=== PATIENT | female | born 1965 | race Caucasian/White ===

== ENCOUNTER 2018-10-14 08:42 | Inpatient (IN) | payer OTHER ==
[~2018-10-14] VITALS: Ht 160 cm; Wt 45.9 kg
[2018-10-14] VITALS (8 sets, daily range): BP systolic 90–139; BP diastolic 48–100
[~2018-10-14 08:42] MED LIST: ACIDOPHILUS1 EAC3 PO; ACIDOPHILUS100 MG PO; ADULT LOW DOSE81 MG PO; BACLOFEN20 MG PO; BENADRYL ALLERG25 MG PO; BENADRYL25 MG PO; BUSPIRONE HCL7.5 MG PO; CLEOCIN HCL300 MG PO; CLONAZEPAM 1 MG1 M1 PO; COLACE100 MG PO; FAMOTIDINE20 MG PO; FENTANYL PA25 MCG/HR TP; FLEXERIL PO; HYDROCODON-ACE1 EAC4 PO; HYDROCODON-ACE1 EAC5 PO; HYDROCODON-ACE1 EAC8 PO; IBUPROFEN 600600 M1 PO; KAPVAY0.1 MG PO; MARINOL5 MG PO; MORPHINE SULFAT15 M3 PO; MORPHINE TOP; MS CONTIN 30 MG30 M1 PO; MS CONTIN30 MG PO; NEURONTIN 400400 M1 PO; NEURONTIN 400M400 M2 PO; NORCO 10-325 T1 EACH PO; OXYCONTIN30 MG PO; PREDNISONE 5 MG5 M1 PO; PROVENTIL; SSD TOP; TIZANIDINE HCL4 M1 PO; TIZANIDINE HCL4 MG PO; TRILEPTAL150 MG PO; [UNRECOGNIZED DRUG - CODE] TOP
[2018-10-14 09:14] LABS: HCO3 20.1 mmol/L (22.0-26.0); PCO2 37.6 mmHg (35.0-45.0); PO2 67.6 mmHg (80.0-100.0); pH 7.345 (7.360-7.450); sO2 92.7 % (92.0-98.0)
[2018-10-14 09:36] LABS: URINE BLOOD TRACE (Negative); URINE CLARITY CLOUDY; URINE COLOR BROWN; URINE GLUCOSE-RANDOM* TRACE (Negative); URINE KETONES TRACE (Negative); URINE LEUKOCYTES-REFLEX TRACE (Negative); URINE PROTEIN (DIPSTICK) 1+ (Negative); URINE SPECIFIC GRAVITY 1.025 (1.005-1.035)
[2018-10-14 09:37] LABS: HEMOGLOBIN 14.5 gm/dL (12.0-15.0); MCH 30.1 pg (26.0-34.0); MCHC 33.8 g/dL (28.0-37.0); MCV 89.2 fL (80.0-100.0); RBC 4.82 mil/uL (4.20-5.00); RDW 12.6 % (10.5-14.5); WBC 13.1 thou/uL (4.0-11.0)
[2018-10-14 09:40] LABS: ICTOTEST (BILI CONFIRMATORY) Negative (Negative); URINE BILIRUBIN NEGATIVE (Negative); URINE NITRITE-REFLEX POSITIVE (Negative)
[2018-10-14 09:50] LABS: AMORPHOUS URATES Many /LPF (None Seen); BACTERIA-REFLEX >30 Many /HPF (None Seen); CASTS None Seen /LPF (None Seen); SQUAMOUS None Seen /LPF (0-3); URINE RBC 3-10 Few /HPF (0-2); URINE WBC-REFLEX 0-5 Rare /HPF (0-5)
[2018-10-14 09:55] LABS: ANION GAP 12 mmol/L (7-16); BUN 14 mg/dL (7-18); CALCIUM 9.6 mg/dL (8.5-10.1); CHLORIDE 96 mmol/L (98-107); CO2 24 mmol/L (21-32); CREATININE 0.7 mg/dL (0.6-1.0); GLUCOSE 163 mg/dL (74-106); SODIUM 132 mmol/L (136-145); TROPONIN-I <0.06 ng/mL (<0.06)
[2018-10-14 09:56] LABS: POTASSIUM 2.9 mmol/L (3.5-5.1)
[2018-10-14] MEDS ORDERED: NORCO 10-325 T1 EACH PO (11:47)
[2018-10-14] MEDS ORDERED: MS CONTIN 30 MG30 MG PO (11:47)
[2018-10-14] MEDS ORDERED: BACLOFEN 10MG T10 MG PO (11:48)
[2018-10-14] MEDS ORDERED: OXCARBAZEPINE150 MG PO (11:48)
[2018-10-14] MEDS ORDERED: COLACE100 MG PO (11:49)
[2018-10-14] MEDS ORDERED: CLONIDINE0.1 PO (11:49)
[2018-10-14] MEDS ORDERED: IBUPROFEN 600600 M1 PO (11:49)
[2018-10-14] MEDS ORDERED: PEPCID20 MG PO (11:50)
[2018-10-14] MEDS ORDERED: SSD CREAM 1% 5050 GM TOP (11:50)
[2018-10-14] MEDS ORDERED: NEURONTIN 400400 M1 PO (11:51)
[2018-10-14] MEDS ORDERED: ACIDOPHILUS1 EAC4 PO ×2 (12:07)
--- NOTE | 2018-10-14 13:46 | EKG ---
[address] [address] ELECTROCARDIOGRAM REPORT Name: RAMIREZ DE GUZMAN Room #: 357-P ADM IN M.R.#: [id number] Admission: 10/14/18 Attend Phys: Iggy Mclain MD Discharge: Date of : 69 Report #: [id number] THIS REPORT FOR: //name// [facility] ED Test Date: 2018-10-14 Test Time: 10:15:37 Pat Name: RAMIREZ DE GUZMAN Department: Room: 357 Gender: F Photo Mask Cleaner: Mannie GODWIN : 1965 Requested By: Leonides Lara Order Number: [id number] MD: Delmer Veliz Measurements Intervals Rosie Rate: 104 P: 61 AK: 161 QRS: 34 QRSD: 108 T: 50 QT: 382 QTc: 503 Interpretive Statements Sinus tachycardia Nonspecific ST segment abnormalities Compared to ECG 04/26/2008 14:46:14 No significant changes Electronically Signed On 10-14-2018 13:45:51 CDT by Delmer Veliz [email or web address] <ELECTRONICALLY SIGNED> By: Delmer Veliz MD 10/14/18 1345 [id number] MD ROSA Frost
[2018-10-14 15:10] LABS: CALCIUM 8.4 mg/dL (8.5-10.1); CREATININE 0.4 mg/dL (0.6-1.0); MAGNESIUM 1.8 mg/dL (1.8-2.4); POTASSIUM 3.1 mmol/L (3.5-5.1)
[2018-10-14 15:59] LABS: BE(vivo) -4.5 mmol/L (-2 to +3); HCO3 20.5 mmol/L (22.0-26.0); PCO2 37.3 mmHg (35.0-45.0); pH 7.357 (7.360-7.450); sO2 86.5 % (92.0-98.0)
[2018-10-14 16:00] LABS: PO2 53.3 mmHg (80.0-100.0)
--- NOTE | 2018-10-14 18:23 | NUR ---
NEW pt come from ER for unresponsing, pt 's eyes are closed, she is only reponsing to pain , pt is on o2 3l/min/nc, pt's VS, BS and o2sat are stable at this time, pt has started IV flud, IV ABT and KCL replacement as order, pt's PINEDA has insert for I&O, PT's family stay at pt's bedside, RN will report to next shift to keep eye on pt.
[2018-10-15 04:21] VITALS: BP 166/104
--- NOTE | 2018-10-15 04:37 | NUR ---
Assumed care of patient around 2300. Patient will track with her eyes when her name is called, but does not verbally respond to most questions. Only able to respond to pain questions with "yes." Unable to vocalize anything else. [employer]ER contacted re: resuming home medication list. Patient able to sleep most of shift. Family at bedside. Will continue to monitor.
[2018-10-15 05:34] LABS: HEMATOCRIT 34.6 % (37.0-47.0); MCH 30.3 pg (26.0-34.0); MCHC 34.8 g/dL (28.0-37.0); MCV 87.1 fL (80.0-100.0); RBC 3.97 mil/uL (4.20-5.00); RDW 12.6 % (10.5-14.5); WBC 7.8 thou/uL (4.0-11.0)
[2018-10-15 05:42] LABS: CALCIUM 8.2 mg/dL (8.5-10.1); CREATININE 0.3 mg/dL (0.6-1.0)
[2018-10-15 07:20] VITALS: BP 165/107
[2018-10-15 10:20] VITALS: BP 151/102
[2018-10-15 11:05] VITALS: BP 139/97
[2018-10-15 15:05] VITALS: BP 155/110
[2018-10-15 15:20] LABS: CALCIUM 8.7 mg/dL (8.5-10.1); CREATININE 0.3 mg/dL (0.6-1.0); MAGNESIUM 1.7 mg/dL (1.8-2.4); POTASSIUM 3.4 mmol/L (3.5-5.1)
--- NOTE | 2018-10-15 18:36 | NUR ---
pt is A&OX2 ( person and place) and pt can follow some commands, pt is continuing IV fluid and IV abt, and low potassium replacement as order, pt's potassium is 3.4 at 1500pm, RN has called dr to report pt's abnormal lab results, and high BP , new order received, DR Rey asks to recheck K and Mag LAB in 10/16/18 am, pt deoes not have SOB and N/V today. pt has slowly meeting care plan goals.
[2018-10-15 19:49] VITALS: BP 148/101
[2018-10-16 05:16] LABS: HEMATOCRIT 35.2 % (37.0-47.0); HEMOGLOBIN 11.9 gm/dL (12.0-15.0); MCH 29.9 pg (26.0-34.0); MCHC 33.9 g/dL (28.0-37.0); MCV 88.2 fL (80.0-100.0); RBC 3.99 mil/uL (4.20-5.00); RDW 12.6 % (10.5-14.5); WBC 6.3 thou/uL (4.0-11.0)
[2018-10-16 05:29] LABS: CALCIUM 8.6 mg/dL (8.5-10.1); CREATININE 0.3 mg/dL (0.6-1.0); MAGNESIUM 1.9 mg/dL (1.8-2.4); POTASSIUM 3.2 mmol/L (3.5-5.1)
[2018-10-16 05:42] VITALS: BP 180/107
--- NOTE | 2018-10-16 06:38 | NUR ---
PT LYING IN BED. TURNING AT LEAST EVERY TWO HOURS. LORTAB AND IBUPROFEN PROVIDING PARTIAL PAIN RELIEF. FAMILY AT BEDSIDE. RESTING COMFORTABLY. NO NEEDS VOICED. CALL LIGHT WITHIN REACH. WILL CONTINUE TO PROVIDE FREQUENT OBSERVATION.
[2018-10-16 07:15] VITALS: BP 181/111
[2018-10-16 10:09] VITALS: BP 149/83
[2018-10-16 13:40] VITALS: BP 172/99
--- NOTE | 2018-10-16 14:25 | NUR ---
pt's assessment has done, pt is A&OX3, pt starts eating and drinking, pt is continuing IV fluid and iv ABT, PT has finished IV kcl 40meq / 200ml ( 20 meq/100ml / bag) infusion at 50ml/hr, pt will have Lab BMP at 1500 as order, pt is continuing pain managemnet , pt needs help change position and ADL, pt had PRN hydralazine 10mg iv for BP 172/99MMHG at 1400pm, pt is on o2 3l/min/nc, pt denies pain and sob at this time,pt's family stay at pt's bedside .pt has slowly meeting care plan goals.
--- NOTE | 2018-10-16 15:49 | NUR ---
pt has 40 meq kcl IV infusion over 4hr for potassium 3.2 today, RN has called Dr Mclain to report pt is diffical to draw blood to recheck potassium at 1500pm, pt's vs are stable at this time, new order received, cancel 1500pm Lab, order Lab at 10/17/18 am, pt refused COLON bed. we will change position q2hr.
[2018-10-16 15:50] VITALS: BP 153/96
[2018-10-16 20:10] VITALS: BP 170/90
[2018-10-17 00:08] VITALS: BP 146/84
[2018-10-17 05:42] LABS: HEMATOCRIT 28.6 % (37.0-47.0); MCHC 34.2 g/dL (28.0-37.0); MCV 87.7 fL (80.0-100.0); RBC 3.26 mil/uL (4.20-5.00); RDW 12.5 % (10.5-14.5); WBC 8.5 thou/uL (4.0-11.0)
[2018-10-17 05:45] LABS: HEMOGLOBIN 9.8 gm/dL (12.0-15.0)
[2018-10-17 05:58] LABS: CALCIUM 8.1 mg/dL (8.5-10.1); CREATININE 0.2 mg/dL (0.6-1.0)
[2018-10-17 06:03] LABS: POTASSIUM 2.6 mmol/L (3.5-5.1)
[2018-10-17 06:23] VITALS: BP 134/76
[2018-10-17 07:59] VITALS: BP 157/96
--- NOTE | 2018-10-17 08:43 | 2DMMODE ---
[facility] [place] [address] 2 D/M-MODE ECHOCARDIOGRAM Name: RAMIREZ DE GUZMAN Abdiel Room #: 357-P ADM IN .R.#: [id number] Admission: 10/14/18 Attend Phys: Iggy Mclain MD Discharge: Date of : 69 Date of Service: 10/17/18 0842 Report #: [id number] THIS REPORT FOR: //name// APPROVED REPORT Study performed: 10/17/2018 08:11:58 EXAM: Comprehensive 2D, Doppler, and color-flow Echocardiogram Patient Location: Bedside Room #: 357 Status: routine BSA: 1.45 HR: 100 bpm BP: 134/76 mmHg Rhythm: SINUS/TACHY/PVCs Other Information Study Quality: Adequate Indications Hypertension. Hx: MS 2D Dimensions IVSd: 13.78 (7-11mm) LVOT Diam: 21.37 (18-24mm) LVDd: 36.23 mm PWd: 9.39 (7-11mm) LVDs: 26.67 (25-40mm) Aortic Root: 33.73 mm Volumes Left Atrial Volume (Systole) Single Plane 4CH: 36.41 mL Single Plane 2CH: 16.31 mL LA ESV Index: 20.00 mL/m2 Aortic Valve AoV Peak Harman.: 1.51 m/s AO Peak Gr.: 9.12 mmHg LVOT Max P.17 mmHg LVOT Max V: 1.14 m/s DEYANIRA Vmax: 2.70 cm2 Mitral Valve E/A Ratio: 0.8 MV Decel. Time: 221.86 ms MV E Max Harman.: 0.80 m/s MV A Harman.: 0.95 m/s [facility] [place] [address] 2 D/M-MODE ECHOCARDIOGRAM Name: RAMIREZ DE GUZMAN Room #: 357-P [facility]#: [id number] Admission: 10/14/18 Attend Phys: Iggy Mclain MD Discharge: Date of : 69 Date of Service: 10/17/18 0842 Report #: [id number] PHT: 64.34 ms IVRT: 69.20 ms Pulmonary Valve PV Peak Harman.: 1.12 m/s PV Peak Gr.: 5.06 mmHg Pulmonary Vein P Vein S: 0.76 m/s P Vein D: 0.40 m/s P Vein S/D Ratio: 1.90 Tricuspid Valve RAP Estimate: 5.00 mmHg Left Ventricle The left ventricle is normal size. There is normal LV segmental wall motion. Mild basal septal hypertrophy is present. Left ventricular systolic function is normal. LVEF is 65%. Mild diastolic dysfunction Right Ventricle The right ventricle is normal size. The right ventricular systolic function is normal. Atria The left atrium size is normal. The right atrium size is normal. Aortic Valve The aortic valve is normal in structure. No aortic regurgitation is present. There is no aortic valvular stenosis. Mitral Valve The mitral valve is normal in structure. There is no mitral valve regurgitation noted. Tricuspid Valve The tricuspid valve is normal in structure. There is no tricuspid valve regurgitation noted. Unable to assess PA pressure. Pulmonic Valve The pulmonary valve is normal in structure. There is no pulmonic valvular regurgitation. Great Vessels The aortic root is normal in size. Ascending aorta is not well [facility] [address] [address] 2 D/M-MODE ECHOCARDIOGRAM Name: RAMIREZ DE GUZMAN Room #: 357-P [facility]#: [id number] Admission: 10/14/18 Attend Phys: Iggy Mclain MD Discharge: Date of : 69 Date of Service: 10/17/18 0842 Report #: [id number] visualized. IVC is normal in size and collapses >50% with inspiration. Pericardium There is no pericardial effusion. <Conclusion> Left ventricular systolic function is normal. There is normal LV segmental wall motion. LVEF is 65%. Mild diastolic dysfunction The aortic valve is normal in structure. No aortic regurgitation or stenosis. The mitral valve is normal in structure. No mitral valve regurgitation. Pulmonary artery systolic pressure could not be reliably ascertained There is no pericardial effusion. <ELECTRONICALLY SIGNED> By: Jt Ferguson MD, [facility] 10/17/1842 1 1 Jt Ferguson MD, [facility] /INF
--- NOTE | 2018-10-17 11:06 | NUR ---
PT's assessment has done, pt is A&O X3, pt is cooperative, pt is on o2 3L/min/nc, pt's vs and o2sat are stable at this time, pt has finished po kcl 20 meq x3 dose for low potassium 2.6, lab will recheck potassium at 1400, pt is continuing iv fluid , iv abt and pain management, pt needs help to change position q1-2hr, pt's family stay pt's bedside.pt is relaxing now.pt has slowly reaching care plan goals.
[2018-10-17 12:06] VITALS: BP 139/83
[2018-10-17] MEDS ORDERED: KEFLEX500 M1 PO (12:12)
[2018-10-17] MEDS ORDERED: KLOR-CON 1010 MEQ PO (12:12)
[2018-10-17 12:50] VITALS: BP 139/83
--- NOTE | 2018-10-17 14:10 | NUR ---
INITIAL ASSESSMENT/DISCHARGE NOTE: SW reviewed chart and spoke with nursing and attending physician. Pt was admitted from home due to AMS. Pt with hx of advanced MS and is bed bound. Pt has discharge orders to return home today. Pt will need stretcher transportation. Pt to have labs drawn at 1400. SW met with pt and dtr at bedside. Introduced role of SW. Pt is alert/orientated x 4. Pt report she lives at home with her and children. Pt is bedbound and has a specialty w/c. Pt was not on O2 prior to admission. Pt's family provide care for her at home. Pt states she will need transportation home. Pt normally uses [facility] for ambulance transportation. SW will arrange with [facility] once pt has been cleared for discharge. Pt's PCP is Dr. Audi Olivares. SW is following to finalize discharge.
--- NOTE | 2018-10-17 18:56 | NUR ---
pt's have discharged to home about 1820pm, pt's Santizo catheter and piv have removed, discharge teaching has giving to pt and pt's family.
== END 2018-10-17 17:59 | disposition home or self-care (01) | DRG 872 ==
LOC: ER 08:42 → EROBS 10:30 → 3W 10:30
PROVIDERS: Emergency Medicine; Hospitalist; ADMIT Hospitalist
DX: A41.9 Sepsis, unspecified organism (principal); G93.40 Encephalopathy, unspecified; N30.00 Acute cystitis without hematuria; E87.6 Hypokalemia; G89.29 Other chronic pain; G35 Multiple sclerosis; I95.9 Hypotension, unspecified; E86.0 Dehydration; I10 Essential (primary) hypertension; Z79.1 Long term (current) use of non-steroidal anti-inflammatories (NSAID); Z79.82 Long term (current) use of aspirin; Z79.899 Other long term (current) drug therapy; Z88.1 Allergy status to other antibiotic agents; Z88.2 Allergy status to sulfonamides; Z88.8 Allergy status to other drugs, medicaments and biological substances
CPT/HCPCS: 10879